=== PATIENT | female | born 1985 | race Caucasian/White ===

== ENCOUNTER 2016-10-22 17:38 | Emergency (ER) | payer SELFPAY ==
[2016-10-22 19:17] VITALS: BP 124/78
--- NOTE | 2016-10-22 19:55 | UC ---
[facility] Dental HPI - HPI Summary HPI Summary: Previous pain in same tooth, obvious dental fracture and abcess noted. in back of left lower jaw. - History of Current Complaint Chief Complaint: UCDentalProblem Stated Complaint: ORAL PAIN Time Seen by Provider: 10/22/16 19:18 Hx Obtained From: Patient Hx Last Menstrual Period: 10/11/16 ?: No Onset/Duration: Sudden Onset, Lasting Days Severity: Severe Pain Intensity: 7 Pain Scale Used: 0-10 Numeric Related History: Previous Dental Care on Same Tooth - Allergies/Home Medications Allergies/Adverse Reactions: Allergies Allergy/AdvReac Type Severity Reaction Status Date / Time Morphine Allergy Severe Swelling Verified 10/22/16 19:17 Of Face,Lips,& Throat Sulfamethoxazole Allergy Intermediate Hives Verified 10/22/16 19:17 w/Trimethoprim [From Bactrim] PMH/Surg Hx/FS Hx/Imm Hx Previously Healthy: Yes Endocrine History Of: Reports: Thyroid Disease - hypo, Hypothyroidism Denies: Diabetes Cardiovascular History Of: Reports: Cardiac Disorders - svt,mitro valve prolapse Denies: Hypertension Respiratory History Of: Denies: COPD, Asthma GI/ History Of: Denies: Ulcer - Surgical History Surgical History: Yes Surgery Procedure, Year, and Place: 3 C SECT--2007, 2011, tubal ligation - Family History Known Family History: Positive: None Negative: Cardiac Disease, Hypertension - Social History Alcohol Use: Rare Substance Use Type: None Smoking Status (MU): Never Smoked Tobacco Review of Systems Constitutional: Negative Skin: Negative Eyes: Negative ENT: Dental Pain, Ear Ache, Nasal Discharge Respiratory: Negative Cardiovascular: Negative Gastrointestinal: Negative Genitourinary: Negative Motor: Negative Neurovascular: Negative Musculoskeletal: Negative Neurological: Negative Psychological: Negative All Other Systems Reviewed And Are Negative: Yes Physical Exam Triage Information Reviewed: Yes Appearance: Well-Nourished, Ill-Appearing, Pain Distress Vital Signs: Initial Vital Signs Temp 98.7 F 10/22/16 19:11 Pulse 84 10/22/16 19:11 Resp 16 10/22/16 19:11 BP 124/78 10/22/16 19:11 Pulse Ox 97 10/22/16 19:11 Vital Signs Reviewed: Yes Eye Exam: Normal Eyes: Positive: Conjunctiva Clear ENT: Positive: Hearing grossly normal, Pharynx normal, Nasal congestion, TMs normal Dental: Positive: Gross Decay/Caries @ - Left lower jaw, Dental Fracture @, Abscess @ - 2nd to last molar Neck exam: Normal Neck: Positive: Supple, Nontender, No Lymphadenopathy Respiratory Exam: Normal Respiratory: Positive: Chest non-tender, Lungs clear, Normal breath sounds Cardiovascular Exam: Normal Cardiovascular: Positive: RRR, No Murmur, Pulses Normal Abdominal Exam: Normal Abdomen Description: Positive: Nontender, No Organomegaly, Soft Bowel Sounds: Positive: Present Musculoskeletal Exam: Normal Musculoskeletal: Positive: Strength Intact, ROM Intact, No Edema Neurological Exam: Normal Neurological: Positive: Alert, Muscle Tone Normal Psychological Exam: Normal Skin Exam: Normal Dental Complaint Course/Dx - Course Course Of Treatment: hx obtained, exam performed, medication prescribed. - Differential Dx/Diagnosis Differential Diagnosis/Dx: Dental Abscess, Dental Caries, Fractured Tooth, Gingivitis, Peridontic Disease Provider Diagnoses: dental abcess. fractured molar Discharge - Discharge Plan Condition: Stable Disposition: HOME Prescriptions: Penicillin VK TAB* [Penicillin VK 250 mg Tab*] 500 mg PO QID #40 tab Patient Education Materials: Dental Abscess (ED) Referrals: Malena Chowdary NP [Primary Care Provider] - Additional Instructions: take the medication as prescribed. Use Ibuprofen as needed for pain. Use Oil pulling for decreasing the pain and swelling. 1. Swish 1-2 tbs of coconut oil in your mouth for 5 minutes, focus on area of the tooth. Spit out and rinse with salt water 3. brush teeth like normal 4. do at least once a day.
== END 2016-10-22 20:08 | disposition home or self-care (01) ==
LOC: UCCORT 17:38
DX: K04.7 Periapical abscess without sinus (principal); K03.81 Cracked tooth; Z88.5 Allergy status to narcotic agent; Z88.2 Allergy status to sulfonamides
CPT/HCPCS: 99212; G0463

== ENCOUNTER 2016-11-13 07:09 | Emergency (ER) | payer MEDICAID ==
[2016-11-13 07:25] VITALS: BP 119/76
--- NOTE | 2016-11-13 07:38 | UC ---
[facility] HPI - HPI Summary HPI Summary: dental pain x 5 days - History of Current Complaint Chief Complaint: UCDentalProblem Stated Complaint: TOOTH PAIN Time Seen by Provider: 11/13/16 07:20 Hx Obtained From: Patient Hx Last Menstrual Period: 11/10/16 ?: No Onset/Duration: Gradual Onset, Lasting Days - 4, Still Present Severity: Moderate Aggravating: Heat, Cold, Chewing Alleviating: Nothing Dental: 1 - caries , tender - Allergies/Home Medications Allergies/Adverse Reactions: Allergies Allergy/AdvReac Type Severity Reaction Status Date / Time Morphine Allergy Severe Swelling Verified 11/13/16 07:17 Of Face,Lips,& Throat Sulfamethoxazole Allergy Intermediate Hives Verified 11/13/16 07:17 w/Trimethoprim [From Bactrim] Home Medications: Home Medications Naproxen Sodium 220 mg PO ONCE PRN 11/13/16 [History Confirmed 11/13/16] PMH/Surg Hx/FS Hx/Imm Hx Endocrine History Of: Reports: Thyroid Disease - hypo, Hypothyroidism Denies: Diabetes Cardiovascular History Of: Reports: Cardiac Disorders - svt,mitro valve prolapse Denies: Hypertension Respiratory History Of: Denies: COPD, Asthma GI/ History Of: Denies: Ulcer - Surgical History Surgical History: Yes Surgery Procedure, Year, and Place: 3 C SECT--2007, 2011, tubal ligation - Family History Known Family History: Positive: None Negative: Cardiac Disease, Hypertension - Social History Alcohol Use: Rare Substance Use Type: None Smoking Status (MU): Never Smoked Tobacco Review of Systems Constitutional: Negative Skin: Negative Eyes: Negative ENT: Dental Pain Respiratory: Negative Cardiovascular: Negative Gastrointestinal: Negative All Other Systems Reviewed And Are Negative: Yes Physical Exam Triage Information Reviewed: Yes Appearance: Well-Appearing, No Pain Distress, Well-Nourished Vital Signs: Initial Vital Signs Temp 97.8 F 11/13/16 07:18 Pulse 64 11/13/16 07:18 Resp 14 11/13/16 07:18 BP 119/76 11/13/16 07:18 Pulse Ox 100 11/13/16 07:18 Vital Signs Reviewed: Yes Eyes: Positive: Conjunctiva Clear ENT: Positive: Normal ENT inspection, Hearing grossly normal, Pharynx normal. Negative: Nasal congestion, Nasal drainage Dental: Positive: Gross Decay/Caries @ - # 19 Neck exam: Normal Neck: Positive: Supple, Nontender, No Lymphadenopathy Respiratory: Positive: Chest non-tender, Lungs clear, Normal breath sounds Cardiovascular: Positive: RRR, No Murmur, Pulses Normal Dental Complaint Course/Dx - Differential Dx/Diagnosis Provider Diagnoses: dental pain Discharge - Discharge Plan Condition: Stable Disposition: HOME Prescriptions: Amoxicillin (*) 875 mg PO BID #20 tab Patient Education Materials: Dental Caries (ED) Referrals: Malena Chowdary NP [Primary Care Provider] - Additional Instructions: follow up with your dentist [place]
== END 2016-11-13 07:50 | disposition home or self-care (01) ==
LOC: UCCORT 07:09
DX: K08.89 Other specified disorders of teeth and supporting structures (principal); Z88.2 Allergy status to sulfonamides; Z88.5 Allergy status to narcotic agent
CPT/HCPCS: 99212; G0463

== ENCOUNTER 2017-01-24 11:27 | Emergency (ER) | payer BC, MEDICAID ==
[2017-01-24 13:15] VITALS: BP 123/89
--- NOTE | 2017-01-24 14:08 | UC ---
[facility] General HPI - HPI Summary HPI Summary: complaint of left sided neck and shoulder pain after falling at work slipped slipped and fell backwards and tried to catch herself on the counter with her left arm and hurt her shoulder previous injury- labrum tear- schedule for surgery with Dr Isbell pain between shoulder blades in the back of her head and neck shooting pain in the left side of her neck slight headache in the back of her head hasn't taken any medication for pain denies dizziness at this time- small laceration on left pinky - History of Current Complaint Chief Complaint: UCLaceration Stated Complaint: LEFT PINKY LACERATION Time Seen by Provider: 01/24/17 13:59 - Allergy/Home Medications Allergies/Adverse Reactions: Allergies Allergy/AdvReac Type Severity Reaction Status Date / Time Morphine Allergy Severe Swelling Verified 01/24/17 13:15 Of Face,Lips,& Throat Sulfamethoxazole Allergy Intermediate Hives Verified 01/24/17 13:15 w/Trimethoprim [From Bactrim] Home Medications: Home Medications Cyclobenzaprine TAB* [Flexeril 10 MG TAB*] 10 mg PO TID PRN 01/24/17 [History Confirmed 01/24/17] PMH/Surg Hx/FS Hx/Imm Hx Previously Healthy: No - left labrum tear Endocrine History Of: Reports: Thyroid Disease - hypo, Hypothyroidism Denies: Diabetes Cardiovascular History Of: Reports: Cardiac Disorders - svt,mitral valve prolapse Denies: Hypertension Respiratory History Of: Denies: COPD, Asthma GI/ History Of: Denies: Ulcer - Surgical History Surgical History: Yes Surgery Procedure, Year, and Place: 3 C SECT--2007, 2009, 2011, tubal ligation - Family History Known Family History: Positive: None Negative: Cardiac Disease, Hypertension - Social History Occupation: Employed Full-time Lives: With Family Alcohol Use: Rare Substance Use Type: None Smoking Status (MU): Never Smoked Tobacco - Immunization History Most Recent Tetanus Shot: 2010 Review of Systems Constitutional: Negative Skin: Negative Eyes: Negative ENT: Negative Respiratory: Negative Cardiovascular: Negative Gastrointestinal: Negative Genitourinary: Negative Motor: Negative Neurovascular: Negative Musculoskeletal: Other: - left shoulder pain, neck pain back pain Neurological: Negative Psychological: Negative All Other Systems Reviewed And Are Negative: Yes Physical Exam Triage Information Reviewed: Yes Appearance: No Pain Distress, Well-Nourished Vital Signs: Initial Vital Signs Temp 98.8 F 01/24/17 12:57 Pulse 97 01/24/17 12:57 Resp 18 01/24/17 12:57 BP 123/89 01/24/17 12:57 Vital Signs Reviewed: Yes Eyes: Positive: Conjunctiva Clear ENT: Positive: Pharynx normal, Nasal drainage Neck: Positive: Other: - -Neck has no noted deformities or signs of inflammation. Curvature of cervical spine within normal limits. Spinous processes of cervical spine palpable, midline, and non-tender, No step-offs, Flexion, extension, and [id number] rotation of cervical spine causes mild discomfort. ] Respiratory: Positive: Lungs clear, Normal breath sounds, No respiratory distress, No accessory muscle use Cardiovascular: Positive: RRR, No Murmur, Pulses Normal Abdomen Description: Positive: Nontender, Soft Bowel Sounds: Positive: Present Musculoskeletal: Positive: Other: - No bony deformities, tenderness in rotator cuff, non tender in biceps tendon, or acromioclavicular joint. Full ROM and strength in shoulder upon adduction, abduction, internal and external rotation. , drop arm test was negative. paraspinal tenderness between shoulder blades and spine,left 5th finger with 3mm laceration Neurological Exam: Normal Psychological Exam: Normal Skin Exam: Normal Course/Dx - Course Course Of Treatment: exam completed. musculoskeletal pain following fall which has exacerbated existing left shoulder injury- no indication for x-ray. will start muscle relaxer and NSAODS with ortho followup. laceration closed wth bandaid - Differential Dx - Multi-Symptom Provider Diagnoses: left shoulder pain. left neck pain. upper back pain. laceration Discharge - Discharge Plan Condition: Stable Disposition: HOME Prescriptions: Cyclobenzaprine TAB* [Flexeril 10 MG TAB*] 10 mg PO TID #30 tab Ibuprofen TAB* [Motrin TAB* 800 MG] 800 mg PO Q8H #30 tab Patient Education Materials: Acute Neck Pain (ED), Shoulder Pain (ED), Laceration (ED) Referrals: Malena Chowdary NP [Primary Care Provider] - Sukhi LINARES,Shivam Houston [Medical Doctor] - Additional Instructions: Start flexeril as directed. Do not drink alcohol or drive while taking flexeril. Please call Dr Isbell for further evaluation and treatment of your shoulder pain call PT for further evaluation and treatment Take ibuprofen for fever or pain. Increase fluids and rest. Please review your discharge instructions. If your symptoms do not improve please call your primary care provider or return to urgent care.
== END 2017-01-24 14:25 | disposition home or self-care (01) ==
LOC: UCCORT 11:27
DX: S61.217A Laceration without foreign body of left little finger without damage to nail, initial encounter (principal); W01.198A Fall on same level from slipping, tripping and stumbling with subsequent striking against other object, initial encounter; Y93.9 Activity, unspecified; Y99.9 Unspecified external cause status; M54.2 Cervicalgia; M25.512 Pain in left shoulder; M54.6 Pain in thoracic spine; Z88.6 Allergy status to analgesic agent; Z88.2 Allergy status to sulfonamides
CPT/HCPCS: 99212; G0463

== ENCOUNTER 2018-04-13 08:14 | Emergency (ER) | payer BC ==
[2018-04-13 08:31] VITALS: BP 109/79
--- NOTE | 2018-04-13 08:55 | UC ---
Abdominal Pain Female HPI - HPI Summary HPI Summary: LLQ ABDOMINAL PAIN X 3 DAYS PAIN IS 6 OUT OF 10 , OFF AND ON, RADIATING TO HER BACK NO FEVER, NO CHILLS, NO + NAUSEA, NO VOMITING , NO DIARRHEA OR CONSTIPATION, NO URINARY SX HX OF KIDNEY STONES - History of Current Complaint Chief Complaint: UCAbdominalPain Stated Complaint: LEFT ABDOMINAL AND BACK PAIN Time Seen by Provider: 04/13/18 08:32 Hx Obtained From: Patient Hx Last Menstrual Period: 04/01/18 ?: No Onset/Duration: Gradual Onset, Lasting Days - 3, Still Present Timing: Intermittent Episodes Lasting: Severity Initially: Severe Severity Currently: Moderate Pain Intensity: 3 Location: Discrete At: LLQ Radiates: Yes Radiates to: Back, Flank Character: Sharp Aggravating Factor(s): Nothing Alleviating Factor(s): Nothing Associated Signs and Symptoms: Positive: Nausea. Negative: Diaphoresis, Fever, Cough, Chest Pain, Dizzy, Back Pain, Constipation, Blood in Stool, Urinary Symptoms, Decreased Appetite, Vaginal Bleeding, Vaginal Discharge, Vomiting, Diarrhea Allergies/Adverse Reactions: Allergies Allergy/AdvReac Type Severity Reaction Status Date / Time morphine Allergy Severe Anaphylatic Verified 04/13/18 08:31 Shock sulfamethoxazole Allergy Intermediate Hives Verified 04/13/18 08:32 [From Bactrim] trimethoprim [From Bactrim] Allergy Intermediate Hives Verified 04/13/18 08:32 Home Medications: Home Medications Cetirizine* [ZyrTEC 10 MG TAB*] 10 mg PO DAILY 04/13/18 [History Confirmed 04/13] buPROPion SR TAB* [Wellbutrin SR TAB*] 150 mg PO BID 04/13/18 [History Confirmed 04/13/18] PMH/Surg Hx/FS Hx/Imm Hx Cardiovascular History: Cardiac Disease - Surgical History Surgical History: Yes Surgery Procedure, Year, and Place: 3 C SECT--2007, 2009, 2012, tubal ligation - Family History Known Family History: Positive: None Negative: Cardiac Disease, Hypertension - Social History Alcohol Use: Rare Substance Use Type: None Smoking Status (MU): Never Smoked Tobacco - Immunization History Most Recent Tetanus Shot: 2010 Review of Systems Constitutional: Negative Skin: Negative Eyes: Negative ENT: Negative Respiratory: Negative Cardiovascular: Negative Gastrointestinal: Abdominal Pain, Nausea Genitourinary: Negative Is Patient Immunocompromised?: No All Other Systems Reviewed And Are Negative: Yes Physical Exam Triage Information Reviewed: Yes Appearance: Well-Appearing, No Pain Distress, Well-Nourished Vital Signs: Initial Vital Signs Temp 98.2 F 04/13/18 08:25 Pulse 89 04/13/18 08:25 Resp 18 04/13/18 08:25 BP 109/79 04/13/18 08:25 Pulse Ox 97 04/13/18 08:25 Vital Signs Reviewed: Yes Eye Exam: Normal Eyes: Positive: Conjunctiva Clear ENT: Positive: Normal ENT inspection, Hearing grossly normal, Pharynx normal Neck exam: Normal Neck: Positive: Supple, Nontender, No Lymphadenopathy Respiratory: Positive: Chest non-tender, Lungs clear, Normal breath sounds Cardiovascular: Positive: RRR, No Murmur, Pulses Normal Abdomen Description: Positive: Soft, Other: - LLQ TENDERNESS. Negative: CVA Tenderness (R), CVA Tenderness (L), Distended, Guarding Bowel Sounds: Positive: Present Skin Exam: Normal Abd Pain Female Course/Dx - Differential Dx/Diagnosis Provider Diagnoses: LLQ ABOMINAL PAIN Discharge - Sign-Out/Discharge Documenting (check all that apply): Patient Departure - Discharge Plan Condition: Stable Disposition: HOME Patient Education Materials: Abdominal Pain (ED) Referrals: Malena Chowdary NP [Primary Care Provider] - 5 Days Additional Instructions: IMPRESSION: PUNCTATE NONOBSTRUCTING LEFT RENAL CALYCEAL STONE. CONT. WITH REST, TAKE TYLENOL OR IBUPROFEN NEEDED FOR PAIN FOLLOW UP WITH YOUR PCP IN ONE WEEK IF NOT IMPROVING - Billing Disposition and Condition Condition: STABLE Disposition: Home
--- NOTE | 2018-04-13 09:28 | RAD ---
CLINICAL HISTORY: left side abdominal pain ? kidney stones COMPARISON: None TECHNIQUE: Multiple contiguous axial CT scans were obtained of the abdomen and pelvis, without intravenous contrast enhancement. Coronal and sagittal multiplanar reformations are submitted for review. Oral contrast was not administered. FINDINGS: The study is limited by the lack of intravenous contrast. This limits evaluation of the solid organs and vasculature. LUNG BASES: The lung bases are clear. LIVER: The liver is normal in shape, size, contour, and attenuation. BILE DUCTS: There is no intrahepatic or extrahepatic biliary dilatation. GALLBLADDER: The gallbladder is normal, without pericholecystic inflammatory change. PANCREAS: The pancreas is normal, without mass or ductal dilatation. SPLEEN: Normal in size and appearance. UPPER GI TRACT: Evaluation of the gastrointestinal tract is limited by incomplete gastric distention. The upper GI tract is unremarkable. SMALL BOWEL AND MESENTERY: The small bowel is normal in contour, course, and caliber. There is no obstruction or dilatation. COLON: The colon is normal in contour, course, caliber. There is no pericolonic inflammatory change. There is a tubular, vermiform, hollow viscus that is blind ending, and originates from the cecum, consistent with a normal appendix. There is no periappendiceal inflammatory change. This is best seen on axial images 57 through 105. ADRENALS: Normal bilaterally. KIDNEYS: There is a punctate calculus of the midpole the left kidney on axial image 40. There is no appreciable ureteral calculus. There is no hydronephrosis. BLADDER: The bladder is smooth in contour. PELVIC ORGANS: The uterus and adnexa are grossly normal for technique. AORTA: The aorta is normal. IVC: Unremarkable LYMPH NODES: There is no lymphadenopathy by size criteria. ABDOMINAL WALL: There is no evidence for abdominal wall hernia. BONES AND SOFT TISSUES: Unremarkable OTHER: None IMPRESSION: PUNCTATE NONOBSTRUCTING LEFT RENAL CALYCEAL STONE.
== END 2018-04-13 09:38 | disposition home or self-care (01) ==
LOC: UCCORT 08:14
DX: R10.32 Left lower quadrant pain (principal); Z88.4 Allergy status to anesthetic agent; Z88.1 Allergy status to other antibiotic agents
CPT/HCPCS: 74176; 81003; 99211; G0463

== ENCOUNTER 2018-06-15 08:34 | Emergency (ER) | payer BC ==
[2018-06-15 08:54] VITALS: BP 138/76
--- NOTE | 2018-06-15 09:19 | RAD ---
Indication: Medial LEFT foot pain following direct injury with softball. Comparison: No relevant prior exams available on the [facility] [place] for comparison. Technique: AP, lateral, and oblique views LEFT foot. Report: Normal articular alignment throughout. Preserved joint spaces. No cortical disruption or suspicious trabecular irregularity to suggest fracture. Unremarkable soft tissue contours. IMPRESSION: #. Negative exam.
--- NOTE | 2018-06-15 09:24 | UC ---
Lower Extremity/Ankle HPI - HPI Summary HPI Summary: 32-year-old woman comes to clinic today with a complaint of left foot pain. 5 days ago she was struck with a softball on the inner aspect of the left midfoot. She's been icing it and taking ibuprofen and foot has been improving. Within the last day she was stretching her foot and felt a pop and increased pain in the left foot. The pain is in the midfoot she's been weightbearing on her heel. No ankle pain. - History of Current Complaint Chief Complaint: UCLowerExtremity Stated Complaint: LEFT FOOT COMPLAINT Time Seen by Provider: 06/15/18 09:22 Hx Last Menstrual Period: ~06/01/18 Pain Intensity: 3 - Allergies/Home Medications Allergies/Adverse Reactions: Allergies Allergy/AdvReac Type Severity Reaction Status Date / Time morphine Allergy Severe Anaphylatic Verified 06/15/18 08:46 Shock sulfamethoxazole Allergy Intermediate Hives Verified 06/15/18 08:46 [From Bactrim] trimethoprim [From Bactrim] Allergy Intermediate Hives Verified 06/15/18 08:46 Home Medications: Home Medications Acetaminophen [Acetaminophen Extra Strength] 500 mg PO Q4H PRN 06/15/18 [ History Confirmed 06/15/18] Ibuprofen TAB* [Advil TAB*] 400 mg PO Q6H PRN 06/15/18 [History Confirmed ] PMH/Surg Hx/FS Hx/Imm Hx Endocrine History: Hypothyroidism Psychological History: Anxiety, Depression - Surgical History Surgical History: Yes Surgery Procedure, Year, and Place: 3 C SECT--2007, 2009, 2011, tubal ligation - Family History Known Family History: Positive: None Negative: Cardiac Disease, Hypertension - Social History Alcohol Use: Rare Substance Use Type: None Smoking Status (MU): Never Smoked Tobacco - Immunization History Most Recent Tetanus Shot: 2010 Review of Systems Constitutional: Negative Skin: Bruising - MEDIAL LEFT FOOT Eyes: Negative ENT: Negative Respiratory: Negative Cardiovascular: Negative Motor: Decreased ROM - LEFT FOOT SECONSARY TO PAIN Neurovascular: Negative Musculoskeletal: Other: - LEFT MID FOOT Neurological: Negative Psychological: Negative Is Patient Immunocompromised?: No All Other Systems Reviewed And Are Negative: Yes Physical Exam Triage Information Reviewed: Yes Appearance: Well-Appearing, Well-Nourished Vital Signs: Initial Vital Signs Temp 98.3 F 06/15/18 08:44 Pulse 84 06/15/18 08:44 Resp 14 06/15/18 08:44 BP 138/76 06/15/18 08:44 Pulse Ox 100 06/15/18 08:44 Vital Signs Reviewed: Yes Eye Exam: Normal ENT Exam: Normal Neck exam: Normal Neck: Positive: Supple Respiratory: Positive: No respiratory distress Musculoskeletal: Positive: Other: - Left foot has ecchymosis on the medial aspect it's tender to palpation at that same site. No skin break. Capillary refill is normal. Patient able to move her toes but with pain. Ankle is nontender and with full range of motion. Neurological Exam: Normal Neurological: Positive: Alert, Muscle Tone Normal Psychological Exam: Normal Skin: Positive: Other - Ecchymosis medial aspect left foot Lower Extremity Course/Dx - Course Course Of Treatment: Order Information: FOOT LEFT 3+ VWS. Accession Number: [id number]. CPT: 92622. Indication: Medial LEFT foot pain following direct injury with softball. Comparison: No relevant prior exams available on the [facility] [place] for [place]. Technique: AP, lateral, and oblique views LEFT foot. Report: Normal articular alignment throughout. Preserved joint spaces. No cortical. disruption or suspicious trabecular irregularity to suggest fracture. Unremarkable soft. tissue contours. IMPRESSION: #. Negative exam. . <Electronically signed by Jake Matias MD in OV> 06/15/18 0916. Discussed x-ray report with the patient. Plan is Lorenzo wrap and postop shoe and crutches. Ice elevation and anti-inflammatories. Follow up with sports medicine or orthopedics if not completely improved. - Differential Dx/Diagnosis Provider Diagnoses: LEFT FOOT SPRAIN AND CONTUSION Discharge - Sign-Out/Discharge Documenting (check all that apply): Patient Departure All imaging exams completed and their final reports reviewed: Yes - Discharge Plan Condition: Stable Disposition: HOME Patient Education Materials: Foot Sprain (ED), Foot Contusion (ED) Referrals: Malena Chowdary NP [Primary Care Provider] - Tiffany Bentley PA [Physician Market Developer] - Additional Instructions: FOLLOW UP WITH SPORTS MEDICINE/ORTHOPEDICS IF NOT COMPLETELY IMPROVED. GET RECHECKED FOR ANY WORSENING OF YOUR CONDITION OR QUESTIONS OR CONCERNS. - Billing Disposition and Condition Condition: STABLE Disposition: Home
== END 2018-06-15 09:48 | disposition home or self-care (01) ==
LOC: UCCORT 08:34
DX: S93.602A Unspecified sprain of left foot, initial encounter (principal); S90.32XA Contusion of left foot, initial encounter; W21.07XA Struck by softball, initial encounter; Y93.9 Activity, unspecified; Y92.9 Unspecified place or not applicable; Z88.1 Allergy status to other antibiotic agents; Z88.5 Allergy status to narcotic agent
CPT/HCPCS: 99213; G0463